=== PATIENT | female | born 2005 | race Caucasian/White ===

== ENCOUNTER 2024-09-06 18:37 | Emergency (ER) | payer SELFPAY ==
[2024-09-06 18:43] VITALS: BP 141/94
--- NOTE | 2024-09-06 19:28 | ED.GENMED ---
History of Present Illness
General
Chief Complaint: Prescription Refill
Source: patient
Exam Limitations: none
Time Seen by Provider: 09/06/24 19:24
History of Present Illness
History of Present Illness:
See MDM
Past History
Past History
ED Past Medical History: None
ED Past Surgical History: None
Social History
Tobacco: Non-smoker
Alcohol: None
Drug: None
Phy Exam
Physical Exam
Physical Exam:
See MDM
Course
Orders/Labs/Results
Orders:
Orders
09/06/24 19:28
Ketorolac [Toradol] 30 mg IM NOW STA
Phenazopyridine HCl [Pyridium] 200 mg PO NOW STA
Sulfamethox./Trimethoprim Ds [Bactrim Ds 800 mg/160 mg] 1 tablet PO NOW STA
Vital Signs
Initial and Last Documented VS:
Initial Vital Signs
Temp Pulse Resp BP Pulse Ox
98.3 F 88 20 141/94 99
09/06/24 18:43 09/06/24 18:43 09/06/24 18:43 09/06/24 18:43 09/06/24 18:43
Last Documented Vital Signs
Temp Pulse Resp BP Pulse Ox
98.3 F 88 20 141/94 99
09/06/24 18:43 09/06/24 18:43 09/06/24 18:43 09/06/24 18:43 09/06/24 18:43
MDM/Problems Addressed
Differential Diagnosis Includes:
HPI and MDM Narrative:
19-year-old female presenting with worsening lower abdominal pain. Patient has developed urinary frequency and burning for the past several hours. She denies back pain or fevers. She went to urgent care and diagnosed with UTI but the pharmacy
closed. Patient was prescribed Bactrim and Pyridium. She came to the emergency department for her first dose.
Physical exam
General: Mildly uncomfortable
HEENT: protecting airway
Neck: appears supple
CV: No evidence of cyanosis
Resp: No accessory muscle use
Abd: Non-distended. Mild suprapubic tenderness
Extremities: No deformities
Neuro: alert
Psych: Normal affect
Skin: Intact
Problems Addressed including Acute and Chronic Conditions affecting care:
1. Cystitis
Acuity: acute
Prognosis: stable
Details: Per patient and mother, this was diagnosed at urgent care already with a urinalysis. She was prescribed Bactrim and Pyridium. Will give first time dose here
Differential Diagnosis (but not limited to): Cystitis, pyelonephritis
Testing considered: Repeat urinalysis
Drug therapy (if applicable): OTC meds, please see d/c instruction regarding Rx drugs
Amount and/or Complexity of Data Reviewed
Clinical info obtained from: Patient
External data reviewed: N/A
Labs I independently reviewed (but not limited to): N/A
Radiology: N/A
Pulse Ox: not hypoxic
EKG independently reviewed: N/A
Laborer Shaft Sinking: N/A
Critical Care: N/A
Risk of Complication:
Social Determinants of health: Good social support
Discussed with other providers: N/A
Escalation of Care includes Admit/Obs: After being observed in the Emergency Department, pt stable for discharge.
Occasional wrong word or 'sound a like' substitutions may have occurred due to the inherent limitations of voice recognition software. Read the chart carefully and recognize, using context, where substitutions have occurred.
*Critical Care Note
Total Time (30-74mins, 75-104mins- exclusive of procedures): Not Applicable
ED Attending Note
-
Portions of this chart may have been created with voice recognition software.� Occasional wrong word or��sound alike� substitutions may have occurred due to the inherent limitations of voice recognition software.
Discharge Plan
Departure
Patient Disposition: Home (Routine Discharge)
Date of Disposition: 09/06/24
Time of Disposition: 19:29
Patient with high blood pressure during this ER visit?: Yes
Discharge Problem:
Cystitis
Instructions: BLOOD PRESSURE
Prescriptions:
No Action
levonorgestrel-ethinyl estrad [Sronyx] 1 EACH tablet
1 ea PO DAILY
famotidine 20 MG tablet
20 mg PO BID Qty: 28 0RF
Rx Instructions:
Take 20 mg twice a day for 14 days
ascorbic acid (vitamin C) [Vitamin C] 500 MG tablet
1,000 mg PO BID Qty: 56 0RF
Rx Instructions:
Take 1,000 mg twice a day for 14 days
albuterol sulfate 1 PUFF HFA aerosol inhaler
2 puff inhalation R [id number] PRN (Reason: shortness of breath) Qty: 1 0RF
zinc sulfate 220 MG capsule
220 mg PO DAILY Qty: 14 0RF
Rx Instructions:
Take 220 mg daily for 14 days
cholecalciferol (vitamin D3) 1,000 UNITS tablet
2,000 units PO DAILY Qty: 28 0RF
Rx Instructions:
Take 2,000 units daily for 14 days
melatonin 5 MG tablet
5 mg PO HS Qty: 14 0RF
Rx Instructions:
Take 5 mg daily at bedtime for 14 days
benzonatate 100 MG capsule
100 mg PO TIDPRN PRN (Reason: cough) Qty: 10 0RF
Activity Restrictions/Additional Instructions:
Please return for any worsening symptoms.
You may return at any time if you have further concerns.
Please follow up with your doctor at the first available appointment, preferably this week. Please take the prescriptions provided by urgent care.
Interventions
Interventions:
*General Assessment Last Done: 09/06/24 18:43
Discharge Date and Time
Print Language: SLOV[place]
[2024-09-06] MEDS: TORADOL 30 MG IM (19:37)
[2024-09-06] MEDS: BACTRIM DS 800 MG/160 MG 1 TABLET PO (19:38)
[2024-09-06] MEDS: Pyridium 200 MG PO (19:38)
== END 2024-09-06 19:58 | disposition home or self-care (01) ==
LOC: EMR 18:37
PROVIDERS: EMERGENCY PHYSICIAN Student in an Organized Health Care Education/Training Program; FAMILY PHYSICIAN Nurse Practitioner Adult Health
DX: N30.90 Cystitis, unspecified without hematuria (principal)
CPT/HCPCS: 99282; 96372